=== PATIENT | female | born 1930 | race African-American/Black ===

== ENCOUNTER 2017-10-28 00:01 | Emergency (ER) | payer SELFPAY ==
[~2017-10-28] VITALS: Ht 165.1 cm; Wt 58.5 kg
[2017-10-28] MEDS ORDERED: BP PILL (00:31)
--- NOTE | 2017-10-28 00:40 | NUR ---
Patient discharged to home in stable conditon. Written and verbal after care instructions given. Patient verbalizes understanding of instructions. Patient reported reduced headache and anxiety related to heart pressure prior to discharge. Patient able to ambulate unassisted with steady gait. Patient left with all personal belongings.
[2017-10-28 00:46] VITALS: BP 129/69
== END 2017-10-28 00:40 | disposition home or self-care (01) ==
LOC: EDBD → ER 00:19
DX: I10 Essential (primary) hypertension (principal); Z79.3 Long term (current) use of hormonal contraceptives
CPT/HCPCS: A4663

== ENCOUNTER 2017-11-06 22:41 | Emergency (ER) | payer MEDICARE ==
[~2017-11-06] VITALS: Ht 165.1 cm; Wt 59.0 kg
[~2017-11-06 22:41] MED LIST: BP PILL
--- NOTE | 2017-11-06 23:00 | NUR ---
Patient ambulated to ER with steady gait, accompanied by , c/o feeling a rapid heart rate, denies chest pain or shortness of breath.
--- NOTE | 2017-11-06 23:10 | NUR ---
Dr. Rodriguez at bedside for MSE.
[2017-11-06 23:47] LABS: BASOPHILS % (AUTO) 0.8 % (0.0-2.0); EOSINOPHILS # (AUTO) 0.2 K/uL (0.0-0.7); HEMATOCRIT 29.8 % (31.2-41.9); HEMOGLOBIN 10.4 g/dL (10.9-14.3); LYMPHOCYTES % (AUTO) 38.9 % (20.5-51.5); MEAN CORPUSCULAR HEMOGLOBIN 29.4 uug (24.7-32.8); MEAN CORPUSCULAR HGB CONC 35 g/dL (32.3-35.6); MEAN CORPUSCULAR VOLUME 84.7 fL (75.5-95.3); MONOCYTES # (AUTO) 0.5 K/uL (2.0-10.0); MONOCYTES % (AUTO) 9.5 % (0.0-11.0); NEUTROPHILS # (AUTO) 2.5 K/uL (1.8-8.9); NEUTROPHILS % (AUTO) 46.8 % (38.5-71.5); PLATELET COUNT (AUTO) 215 K/uL (179-408); RED BLOOD CELL COUNT(AUTO) 3.52 MIL/uL (3.63-4.92); WHITE BLOOD COUNT (AUTO) 5.3 K/uL (3.8-11.8)
[2017-11-06 23:57] LABS: ALANINE AMINOTRANSFERASE 11 U/L (14-59); ALKALINE PHOSPHATASE 85 U/L (50-136); ASPARTATE AMINOTRANSFERASE 15 U/L (15-37); BILIRUBIN,DIRECT 0.1 mg/dL (0.0-0.2); BILIRUBIN,TOTAL 0.3 mg/dL (0.2-1.0); CARBON DIOXIDE 27 mmol/L (21-32); CHLORIDE 103 mmol/L (98-107); CREATININE 1.2 mg/dL (0.6-1.3); GLUCOSE 99 mg/dL (74-106); POTASSIUM 4.3 mmol/L (3.5-5.1); TOTAL PROTEIN, SERUM 8.1 g/dL (6.4-8.2); UREA NITROGEN, BLOOD 24 mg/dL (7-18)
--- NOTE | 2017-11-07 00:18 | NUR ---
Patient discharged to home in stable conditon. Written and verbal after care instructions given. Patient verbalizes understanding of instructions. Patient ambulated out of ER with steady gait, no acute signs of distress, VSS, all belongings taken.
[2017-11-07 00:20] VITALS: BP 146/62
== END 2017-11-07 00:20 | disposition home or self-care (01) ==
LOC: ER 22:43 → EDBD 22:43 → ER 11-07 00:20
DX: R00.2 Palpitations (principal); I10 Essential (primary) hypertension; Z79.3 Long term (current) use of hormonal contraceptives
CPT/HCPCS: 36415; 70030-TC; 84443; 85025; 85730; 93005; A4663